=== PATIENT | female | born 1940 | race Caucasian/White ===

== ENCOUNTER → 2016-09-17 | Outpatient (CLI) | payer OTHER ==
[~2016-09-17] VITALS: Ht 165.1 cm; Wt 66.0 kg
[~2016-09-17] MED LIST: ACIDOPHILUS1 EAC4 PO; ASCORBIC ACID500 M3 PO; Antivert PO; BIOTIN 5000MCG PO; Biotin PO; CALCIUM 600 +1 EA12 PO; CELEXA10 MG PO; CELEXA20 MG PO; CENTRUM SILVER1 EAC3 PO; CITALOPRAM HBR20 MG PO; CLARITIN10 M3 PO; Caltrate 600/200 PO; ENDOCET 5-3251 EACH PO; FERROUS SULFAT325 MG PO; FIBER TABS625 MG PO; FIBER500 MG PO; FOLIC ACID1 MG PO; Fiber Therapy PO; GLUCOSAMINE &1 EACH PO; GLUCOSAMINE1000 MG PO; HYDROCHLOROTH12.5 M3 PO; HYDROCHLOROTHIA25 MG PO; LORADAMED10 MG PO; LOVENOX40 MG/0.4 SC; LUBRICANT EYE D15 ML BOTH EYES; MULTIVITAMIN1 EAC2 PO; OMEPRAZOLE20 MG PO; OS-CAL 500+D T1 EAC1 PO; OS-CAL ULTRA T1 EACH PO; Osteo-Biflex,Flex-A- PO; PREDNISONE TAPER PO; SENNA-TIME S T1 EACH PO; TUMERSAID TABL1 EACH PO; Theragran-M,Centrum, PO; VITAMIN E400 UNI6 PO; Vitamin-E PO
[2016-09-17 11:10] VITALS: BP 142/61
== END | disposition home or self-care (01) ==
LOC: IVINF 10:51
DX: M85.80 Other specified disorders of bone density and structure, unspecified site (principal)
CPT/HCPCS: 96365; J3489